=== PATIENT | female | born 1990 | race African-American/Black ===

== ENCOUNTER 2018-06-10 21:13 | Emergency (ER) | payer OTHER ==
[~2018-06-10] VITALS: Ht 152.4 cm; Wt 124.7 kg
--- OUTSIDE RECORDS SUMMARY | 2018-06-10 21:15 | XMS REPORT | Continuity of Care Document ---
Author Author [facility] Interface Address Unknown Phone Unavailable Problems Problem Status Onset Date Classification Date Reported Comments Source Discharge Diagnosis: Atypical chest pain 10/22/2016 10/25/2016 [facility] CP Active 10/21/2016 [facility] Discharge Diagnosis: Acute suppurative otitis media without spontaneous rupture of ear drum, recurrent, right ear 05/27/2015 05/30/2015 [facility] EAR PAIN Active 05/27/2015 [facility] CONGESTION / SORE THROAT Active 05/19/2014 [facility] CHEST PAIN Active 02/13/2014 [facility] Ear infection Active Problem 08/30/2017 [facility] Morbid obesity Active Problem 08/30/2017 [facility] Medications Medication Details Route Status Patient Instructions Ordering Provider Order Date Source cefdinir 300 MG Oral Capsule 300 mg=1 cap, PO, BID, X 10 day, # 20 cap, 0 Refill(s), Pharmacy: [id number] No Longer Active 05/24/2017 [facility] 200 ACTUAT Albuterol 0.09 MG/ACTUAT Metered Dose Inhaler [ProAir HFA] 2 puff, INHALER, Q6H, PRN wheezing, coughing, or shortness of breath, # 1 ea, 1 Refill(s) Active 05/20/2017 [facility] tramadol hydrochloride 50 MG Oral Tablet 50 mg=1 tab, PO, Q12H, PRN Pain, X 7 day, # 14 tab, 0 Refill(s) Active 10/22/2016 [facility] Ketorolac 30 mg, Route: IVP, Drug form: INJ, ONCE, Dosing Weight 116.818, kg, Priority: STAT, Start date: 10/22/16 4:16:00 CDT, Stop date: 10/22/16 4:16:00 CDT Inactive 10/22/2016 [facility] Sodium Chloride 0.154 MEQ/ML Injectable Solution 1,000 mL, 1000 ml/hr, Infuse Over: 1 hr, Route: IV, 1,000, Drug form: INJ, ONCE, Priority: STAT, Dosing Weight 116.818 kg, Start date: 10/22/16 1:30:00 CDT, Duration: 1 doses or times, Stop date: 10/22/16 1:30:00 CDT Inactive 10/22/2016 [facility] Clindamycin 600 mg, Route: IVPB, ONCE, Dosing Weight 116.818, kg, Priority: STAT, Start date: 10/22/16 1:30:00 CDT, Duration: 1 doses or times, Stop date: 10/22/16 1:30:00 CDT, ABX Indication: Other (specify in Comments) Inactive 10/22/2016 [facility] Acetaminophen 325 MG / Hydrocodone Bitartrate 5 MG Oral Tablet 1 tab, Route: PO, Drug Form: TAB, Dosing Weight 116.818, kg, ONCE, STAT, Start date: 10/22/16 1:30:00 CDT, Stop date: 10/22/16 1:30:00 CDT Inactive 10/22/2016 [facility] Saline Flush 0.9% 10 mL, Route: IVP, Drug Form: INJ, Dosing Weight 116.818, kg, PRN, PRN Line Flush, Start date: 10/21/16 20:36:00 CDT, Duration: 30 day, Stop date: 11/20/16 20:35:00 CDTNotes: (Same as: BD Posiflush) No Longer Active 10/22/2016 [facility] Tetracaine 20 MG/ML Topical Solution 3 drp, Route: RIGHT EAR, ONCE, Start date: 05/27/15 7:30:00, Stop date: 05/27/15 7:30:00 Inactive 05/27/2015 [facility] Amoxicillin 500 MG / Clavulanate 125 MG Oral Tablet [Augmentin 500-mg] 1 tab, PO, Q8H, X 14 day, # 42 tab, 0 Refill(s) Active 05/27/2015 [facility] Allergies, Adverse Reactions, Alerts Substance Category Reaction Severity Reaction type Status Date Reported Comments Source sulfa drugs Assertion Drug allergy Active [facility] Immunizations Immunization Date Given Site Status Last Updated Comments Source Results Order Name Results Value Reference Range Date Interpretation Comments Source URINE AND STOOL UA Mucus Few /LPF None Seen /LPF 10/22/2016 [facility] URINE AND STOOL UA Ketones Negative mg/dL Negative mg/dL 10/22/2016 [facility] URINE AND STOOL UA Glucose Negative mg/dL Negative mg/dL 10/22/2016 [facility] URINE AND STOOL UA Spec Grav 1.027 <=1.030 10/22/2016 [facility] URINE AND STOOL UA Protein Negative mg/dL Negative mg/dL 10/22/2016 [facility] URINE AND STOOL UA pH 5.0 5.0 - 8.0 10/22/2016 [facility] URINE AND STOOL UA Turbidity Slight *ABN* (10/22/16 1:00 AM) Clear 10/22/2016 [facility] URINE AND STOOL UA Color Yellow *NA* (10/22/16 1:00 AM) Yellow 10/22/2016 [facility] URINE AND STOOL UA RBC 2 /HPF 0 - 2 10/22/2016 [facility] URINE AND STOOL UA WBC 2 /HPF 0 - 5 10/22/2016 [facility] URINE AND STOOL UA Bacteria Occasional /HPF None Seen /HPF 10/22/2016 [facility] URINE AND STOOL UA Sq Epi Moderate /LPF Few /LPF 10/22/2016 [facility] URINE AND STOOL UA Leuk Est Negative (10/22/16 1:00 AM) Negative 10/22/2016 [facility] URINE AND STOOL UA Urobilinogen 2.0 mg/dL 0.1 - 1.0 10/22/2016 [facility] URINE AND STOOL UA Nitrite Negative (10/22/16 1:00 AM) Negative 10/22/2016 [facility] URINE AND STOOL UA Blood Negative (10/22/16 1:00 AM) Negative 10/22/2016 [facility] URINE AND STOOL UA Bili Negative *NA* (10/22/16 1:00 AM) Negative 10/22/2016 [facility] URINE CHEM U Preg Negative (10/22/16 1:00 AM) Negative 10/22/2016 [facility] CARDIAC ENZYMES CK MB Index 0.9 0.0 - 2.5 10/22/2016 [facility] CARDIAC ENZYMES Total CK 74 unit/L 12 - 191 10/22/2016 [facility] CARDIAC ENZYMES CK MB 0.7 ng/mL 0.5 - 3.6 10/22/2016 [facility] CARDIAC ENZYMES Troponin-I null 0.00 - 0.40 10/22/2016 [facility] CHEM PANEL eGFR 108 mL/min/1.73m2 10/22/2016 Result Comment: The eGFR is calculated using the CKD-EPI formula. In most young, healthy individuals the eGFR will be >90 mL/min/1.73m2. The eGFR declines with age. An eGFR of 60-89 may be normal in some populations, particularly the elderly, for whom the CKD-EPI formula has not been extensively validated. Use of the eGFR is not recommended in the following populations: Individuals with unstable creatinine concentrations, including patients and those with serious co-morbid conditions. Patients with extremes in muscle mass or diet. The data above are obtained from the National Kidney Disease Education Program (NKDEP) which additionally recommends that when the eGFR is used in patients with extremes of body mass index for purposes of drug dosing, the eGFR should be multiplied by the estimated BMI. [facility] CHEM PANEL Globulin 4.0 g/dL 2.7 - 4.2 10/22/2016 [facility] CHEM PANEL B/C Ratio 18 6 - 25 10/22/2016 [facility] CHEM PANEL AGAP 9.4 meq/L 10.0 - 20.0 10/22/2016 [facility] CHEM PANEL A/G Ratio 0.8 0.7 - 1.6 10/22/2016 [facility] CHEM PANEL Alk Phos 59 unit/L 39 - 136 10/22/2016 [facility] CHEM PANEL AST 16 unit/L 0 - 37 10/22/2016 [facility] CHEM PANEL ALT 19 unit/L 0 - 65 10/22/2016 [facility] CHEM PANEL Albumin Lvl 3.2 g/dL 3.5 - 5.0 10/22/2016 [facility] CHEM PANEL Bili Total 0.2 mg/dL 0.2 - 1.3 10/22/2016 [facility] CHEM PANEL Calcium Lvl 8.6 mg/dL 8.5 - 10.5 10/22/2016 [facility] CHEM PANEL CO2 26 meq/L 24 - 32 10/22/2016 [facility] CHEM PANEL Chloride Lvl 106 meq/L 95 - 109 10/22/2016 [facility] CHEM PANEL Potassium Lvl 3.4 meq/L 3.5 - 5.1 10/22/2016 [facility] CHEM PANEL Total Protein 7.2 g/dL 6.4 - 8.4 10/22/2016 [facility] CHEM PANEL Sodium Lvl 138 meq/L 135 - 145 10/22/2016 [facility] CHEM PANEL Creatinine Lvl 0.87 mg/dL 0.50 - 1.40 10/22/2016 [facility] CHEM PANEL BUN 16 mg/dL 7 - 22 10/22/2016 [facility] CHEM PANEL Glucose Lvl 107 mg/dL 70 - 99 10/22/2016 [facility] CHEM PANEL Phosphorus 3.4 mg/dL 2.5 - 4.5 10/22/2016 [facility] CHEM PANEL Magnesium Lvl 2.2 mg/dL 1.8 - 2.4 10/22/2016 [facility] HEMATOLOGY Segs 48.3 % 45.0 - 75.0 10/22/2016 [facility] HEMATOLOGY Lymphocytes 43.6 % 20.0 - 40.0 10/22/2016 [facility] HEMATOLOGY Eosinophils 3.0 % 0.0 - 4.0 10/22/2016 [facility] HEMATOLOGY Monocytes 4.5 % 2.0 - 12.0 10/22/2016 [facility] HEMATOLOGY Segs-Bands # 3.7 K/CMM 1.5 - 8.1 10/22/2016 [facility] [place] Eosinophils # 0.2 K/CMM 0.0 - 0.5 10/22/2016 [facility] [place] Lymphocytes # 3.3 K/CMM 1.0 - 5.5 10/22/2016 [facility] [place] Basophils 0.6 % 0.0 - 1.0 10/22/2016 [facility] [place] Monocytes # 0.3 K/CMM 0.0 - 0.8 10/22/2016 [facility] [place] D-Dimer 0.45 ug/mL FEU 10/22/2016 [facility] [place] RBC 4.32 M/CMM 4.20 - 5.40 10/22/2016 [facility] [place] Hgb 12.4 g/dL 12.0 - 16.0 10/22/2016 [facility] [place] WBC 7.6 K/CMM 3.7 - 10.4 10/22/2016 [facility] [place] MCV 86.7 fL 80.0 - 98.0 10/22/2016 [facility] [place] MCHC 33.0 g/dL 32.0 - 36.0 10/22/2016 [facility] [place] MCH 28.6 pg 27.0 - 31.0 10/22/2016 [facility] [place] Hct 37.5 % 36.0 - 48.0 10/22/2016 [facility] [place] Platelet 251 K/CMM 133 - 450 10/22/2016 [facility] [place] RDW 13.8 % 11.5 - 14.5 10/22/2016 [facility] [place] MPV 7.4 fL 7.4 - 10.4 10/22/2016 [facility] Ext Lower Venous Doppler Bilat US Ext Lower Venous Doppler Bilat US Exam: Bilateral lower extremity venous ultrasound Clinical indication: swelling Technique: Bilateral lower extremity venous ultrasound is performed. Findings: Exam shows intact common femoral, superficial femoral and popliteal veins. Normal augmentation and compression is evident in these venous segments. No intraluminal thrombus seen. Impression: No evidence for DVT. 10/22/2016 - - Read by: Benny Gutierres MD Dictated Date/time: 10/22/16 03:44 Electronically Signed by: Benny Gutierres MD 10/22/16 03:45 FINAL REPORT [facility] Chest Pulmonary Embolism CTA Chest Pulmonary Embolism CTA CT ANGIOGRAM OF THE CHEST WITH RECONSTRUCTION DATED 10/22/2016. CLINICAL INDICATION: Shortness of breath. Elevated d-dimer. COMPARISON: None. TECHNIQUE: A dynamic contrast-enhanced helical CT angiogram of the chest was performed using pulmonary embolism protocol with subsequent sagittal and coronal MIP reconstruction. A total of 100 cc of Omnipaque 300 was injected intravenously for the exam. CT radiation dose: GCF=834 mGy-cm FINDINGS: PULMONARY ARTERIES: The pulmonary arteries appear to enhance normally. No low- density pulmonary artery filling defects are identified to suggest the CT diagnosis of acute pulmonary embolism. MEDIASTINUM: There is no CT evidence of a mediastinal mass or pathologically enlarged mediastinal lymph nodes. The thoracic aorta is normal in caliber and demonstrates no evidence of dissection. The heart is enlarged. No pericardial fluid collections are noted. PLEURAL SPACES: No acute pleural space abnormalities are detected. LUNGS: The lungs appear clear of acute disease.. UPPER ABDOMEN: The included upper abdominal organs appear unremarkable. ADDITIONAL COMMENTS: None. IMPRESSION: 1. No CT evidence of acute pulmonary embolism. No acute CT abnormalities of the lungs, mediastinum or pleural spaces are detected. SL:131 10/22/2016 - - Read by: Jony Singh MD Dictated Date/time: 10/22/16 03:55 Electronically Signed by: Jony Singh MD 10/22/16 03:58 FINAL REPORT [facility] Chest 2 views DX Chest 2 views DX Chest 2 views DX 10/21/2016 8:36 PM CDT Ordering Physician: Vania Walters CLINICAL HISTORY: - shortness of breath; chest pain and dizziness TECHNIQUE: PA and lateral upright views of the chest were obtained. COMPARISON: None FINDINGS: Lungs are clear. No pleural effusion or pneumothorax is present. Cardiomediastinal silhouette is normal. Bones are normal. IMPRESSION: No acute abnormality of the chest. SL: MUSHTAQ-PC 10/21/2016 - - Read by: Javier Richey MD Dictated Date/time: 10/21/16 21:20 Electronically Signed by: Javier Richey MD 10/21/16 21:20 FINAL REPORT [facility] RAPID Grp A Strep Scr Negative (05/19/14 2:48 PM) Negative 05/19/2014 [facility] VIRAL - SEROLOGY Influ B Negative 1 (05/19/14 2:48 PM) Negative 05/19/2014 1Interpretive Data: Influenza A&B Antigen: Due to the low sensitivity of this test a negative result does not exclude influenza virus infection. A diagnosis of influenza should be considered based on a patient's clinical presentation and empiric antiviral treatment should be considered, if indicated. If more conclusive testing is desired, follow-up confirmatory testing with either viral culture or PCR is warranted. [facility] VIRAL - SEROLOGY Influ A Negative (05/19/14 2:48 PM) Negative 05/19/2014 [facility] URINE AND STOOL UA Urobilinogen <=1.0 mg/dL 0.1 - 1.0 02/14/2014 [facility] URINE AND STOOL UA Nitrite Negative (02/13/14 10:27 PM) Negative 02/14/2014 [facility] URINE AND STOOL UA Leuk Est Trace *ABN* (02/13/14 10:27 PM) Negative 02/14/2014 [facility] URINE AND STOOL UA Blood Large *ABN* (02/13/14 10:27 PM) Negative 02/14/2014 [facility] URINE AND STOOL UA Bili Negative *NA* (02/13/14 10:27 PM) Negative 02/14/2014 [facility] URINE AND STOOL UA Sq Epi Many /LPF Few /LPF 02/14/2014 [facility] URINE AND STOOL UA WBC 12 /HPF 0 - 5 02/14/2014 [facility] URINE AND STOOL UA Bacteria Occasional /HPF None Seen /HPF 02/14/2014 [facility] URINE AND STOOL UA Amorph Tashia Occasional /HPF None Seen /HPF 02/14/2014 [facility] URINE AND STOOL UA RBC 5 /HPF 0 - 2 02/14/2014 [facility] URINE AND STOOL UA Spec Grav 1.019 <=1.030 02/14/2014 [facility] URINE AND STOOL UA pH 6.0 5.0 - 8.0 02/14/2014 [facility] URINE AND STOOL UA Ketones Negative mg/dL Negative mg/dL 02/14/2014 [facility] URINE AND STOOL UA Protein Negative mg/dL Negative mg/dL 02/14/2014 [facility] URINE AND STOOL UA Glucose Negative mg/dL Negative mg/dL 02/14/2014 [facility] URINE AND STOOL UA Turbidity Marked *ABN* (02/13/14 10:27 PM) Clear 02/14/2014 [facility] URINE AND STOOL UA Color Yellow *NA* (02/13/14 10:27 PM) Yellow 02/14/2014 [facility] URINE CHEM U Preg Negative (02/13/14 10:27 PM) Negative 02/14/2014 [facility] Vital Signs Vital Sign Value Date Comments Source Height 152.4 cm 05/24/2017 [facility] BMI Calculated 51.58 05/24/2017 [facility] Heart Rate 83 05/24/2017 [facility] Temperature Oral (F) 98.3 F 05/24/2017 [facility] Respitory Rate 16 05/24/2017 [facility] Weight 119.801 05/24/2017 [facility] Systolic (mm Hg) 125 05/24/2017 [facility] Diastolic (mm Hg) 80 05/24/2017 [facility] Height 152.4 cm 05/20/2017 [facility] Weight 121.818 05/20/2017 [facility] BMI Calculated 52.45 05/20/2017 [facility] Temperature Oral (F) 97.9 F 05/20/2017 [facility] Respitory Rate 18 05/20/2017 [facility] Heart Rate 79 05/20/2017 [facility] Systolic (mm Hg) 135 05/20/2017 [facility] Diastolic (mm Hg) 84 05/20/2017 [facility] Heart Rate 87 10/22/2016 [facility] Respitory Rate 18 10/22/2016 [facility] Systolic (mm Hg) 107 10/22/2016 [facility] Diastolic (mm Hg) 78 10/22/2016 [facility] Respitory Rate 18 10/22/2016 [facility] Heart Rate 78 10/22/2016 [facility] Systolic (mm Hg) 94 10/22/2016 [facility] Diastolic (mm Hg) 78 10/22/2016 [facility] BMI Calculated 50.3 10/22/2016 [facility] Height 152.4 cm 10/22/2016 [facility] Weight 116.818 10/22/2016 [facility] Respitory Rate 18 10/22/2016 [facility] Temperature Oral (F) 98.4 F 10/22/2016 [facility] Heart Rate 82 10/22/2016 [facility] Systolic (mm Hg) 138 10/22/2016 [facility] Diastolic (mm Hg) 92 10/22/2016 [facility] BMI Calculated 46.97 05/27/2015 [facility] Weight 109.091 05/27/2015 [facility] Height 152.4 cm 05/27/2015 [facility] Temperature Oral (F) 98.0 F 05/27/2015 [facility] Heart Rate 94 05/27/2015 [facility] Respitory Rate 18 05/27/2015 [facility] Systolic (mm Hg) 142 05/27/2015 [facility] Diastolic (mm Hg) 82 05/27/2015 [facility] Temperature Oral (F) 97.9 F 05/19/2014 [facility] Systolic (mm Hg) 16 05/19/2014 [facility] Diastolic (mm Hg) 82 05/19/2014 [facility] Respitory Rate 18 05/19/2014 [facility] Heart Rate 92 05/19/2014 [facility] BMI Calculated 37.18 05/19/2014 [facility] Height 152.4 cm 05/19/2014 [facility] Weight 86.364 05/19/2014 [facility] Weight 90.909 02/14/2014 [facility] Height 152.4 cm 02/14/2014 [facility] BMI Calculated 39.14 02/14/2014 [facility] Diastolic (mm Hg) 72 02/14/2014 [facility] Systolic (mm Hg) 114 02/14/2014 [facility] Respitory Rate 22 02/14/2014 [facility] Heart Rate 104 02/14/2014 [facility] Temperature Oral (F) 98.5 F 02/14/2014 [facility] Encounters Location Location Details Encounter Type Encounter Number Reason For Visit Attending Provider ADM Date DC Date Status Source [facility] [id number] Reuben Vasquez 02/14/2014 02/14/2014 [facility] [id number] Anusha Marie 05/19/2014 05/19/2014 [facility] [id number] Leslie Shields 05/27/2015 05/27/2015 [facility] Outpatient [id number] WILLIAMS SIGRID 10/08/2016 Active [facility] Outpatient [id number] KIEL CASTELLANOS 10/21/2016 Active [facility] Emergency [id number] Nick Jimenez 10/22/2016 10/22/2016 [facility] Outpatient [id number] KIEL EMANUEL 05/19/2017 Active [facility] [id number] Williams Marie 05/19/2017 05/20/2017 [facility] Outpatient [id number] JANETTE MARTINEZ 05/24/[address] [facility] [place] [place] [facility] [place] Out[facility] [id number] 05/24/2017 05/25/2017 [facility] Procedures Procedure Code Date Perfomer Comments Source Hernia repair [id number] [facility] Hernia repair [id number] [facility]
--- OUTSIDE RECORDS SUMMARY | 2018-06-10 21:16 | XMS REPORT | Summary of Care ---
Author Author [facility] Organization [facility] Address Unknown Phone Unavailable Encounter MICHAEL Mchugh(YODIT) [id number] Date(s): 10/21/16 - 10/22/16 [facility] [address] [place] [address]- Discharge Diagnosis: Atypical chest pain Discharge Disposition: Home or Self Care Attending Physician: Nick Jimenez DO Vital Signs 1 2 3 Most recent to oldest [Reference Range]: 152.4 cm (10/21/16 8:33 PM) Height 98.4 DegF (10/21/16 8:33 PM) Temperature Oral [96.4-99.1 DegF] 107/78 mmHg (10/22/16 5:16 AM) 94/78 mmHg (10/22/16 1:01 AM) 138/92 mmHg (10/21/16 8:33 PM) Blood Pressure [90-140/60-90 mmHg] 18 BRMIN (10/22/16 5:16 AM) 18 BRMIN (10/22/16 1:01 AM) 18 BRMIN (10/21/16 8:33 PM) Respiratory Rate [14-20 BRMIN] 87 bpm (10/22/16 5:16 AM) 78 bpm (10/22/16 1:01 AM) 82 bpm (10/21/16 8:33 PM) Peripheral Pulse Rate [60-100 bpm] 116.818 kg (10/21/16 8:33 PM) Weight 50.3 m2 (10/21/16 8:33 PM) Body Mass Index Problem List Condition Effective Dates Status Health Status Informant Ear Active infection(Confirmed) Morbid Active obesity(Confirmed) Allergies, Adverse Reactions, Alerts Substance Reaction Severity Status sulfa drugs Active Medications acetaminophen-hydrocodone 325 mg-5 mg oral tablet 1 tab, Route: PO, Drug Form: TAB, Dosing Weight 116.818, kg, ONCE, STAT, Start d ate: 10/22/16 1:30:00 CDT, Stop date: 10/22/16 1:30:00 CDT Start Date: 10/22/16 Stop Date: 10/22/16 Status: Discontinued clindamycin 600 mg, Route: IVPB, ONCE, Dosing Weight 116.818, kg, Priority: STAT, Start date : 10/22/16 1:30:00 CDT, Duration: 1 doses or times, Stop date: 10/22/16 1:30:00 CDT, ABX Indication: Other (specify in Comments) Start Date: 10/22/16 Stop Date: 10/22/16 Status: Discontinued ketOROLAC 30 mg, Route: IVP, Drug form: INJ, ONCE, Dosing Weight 116.818, kg, Priority: ST AT, Start date: 10/22/16 4:16:00 CDT, Stop date: 10/22/16 4:16:00 CDT Start Date: 10/22/16 Stop Date: 10/22/16 Status: Completed Saline Flush 0.9% 10 mL, Route: IVP, Drug Form: INJ, Dosing Weight 116.818, kg, PRN, PRN Line Flus h, Start date: 10/21/16 20:36:00 CDT, Duration: 30 day, Stop date: 11/20/16 20:3 5:00 CDT Notes: (Same as: BD Posiflush) Start Date: 10/21/16 Stop Date: 10/22/16 Status: Discontinued Sodium Chloride 0.9% (Bolus) IV 1,000 mL, 1000 ml/hr, Infuse Over: 1 hr, Route: IV, 1,000, Drug form: INJ, ONCE, Priority: STAT, Dosing Weight 116.818 kg, Start date: 10/22/16 1:30:00 CDT, Dur ation: 1 doses or times, Stop date: 10/22/16 1:30:00 CDT Start Date: 10/22/16 Stop Date: 10/22/16 Status: Completed tramadol 50 mg oral tablet 50 mg=1 tab, PO, Q12H, PRN Pain, X 7 day, # 14 tab, 0 Refill(s) Start Date: 10/22/16 Stop Date: 10/29/16 Status: Ordered Results ELECTROLYTES Most recent to 1 oldest [Reference Range]: Sodium Lvl [135-145 138 mEq/L mEq/L] (10/21/16 11:36 PM) Potassium Lvl 3.4 mEq/L [3.5-5.1 mEq/L] *LOW* (10/21/16 11:36 PM) Chloride Lvl [95-109 106 mEq/L mEq/L] (10/21/16 11:36 PM) CO2 [24-32 mEq/L] 26 mEq/L (10/21/16 11:36 PM) AGAP [10.0-20.0 9.4 mEq/L mEq/L] *LOW* (10/21/16 11:36 PM) CHEM PANEL Most recent to 1 oldest [Reference Range]: Creatinine Lvl 0.87 mg/dL [0.50-1.40 mg/dL] (10/21/16 11:36 PM) eGFR 108 mL/min/1.73m2 1 *NA* (10/21/16 11:36 PM) BUN [7-22 mg/dL] 16 mg/dL (10/21/16 11:36 PM) B/C Ratio [6-25] 18 (10/21/16 11:36 PM) Glucose Lvl [70-99 107 mg/dL mg/dL] *HI* (10/21/16 11:36 PM) Total Protein 7.2 g/dL [6.4-8.4 g/dL] (10/21/16 11:36 PM) Albumin Lvl [3.5-5.0 3.2 g/dL g/dL] *LOW* (10/21/16 11:36 PM) Globulin [2.7-4.2 4.0 g/dL g/dL] (10/21/16 11:36 PM) A/G Ratio [0.7-1.6] 0.8 (10/21/16 11:36 PM) Calcium Lvl 8.6 mg/dL [8.5-10.5 mg/dL] (10/21/16 11:36 PM) Phosphorus [2.5-4.5 3.4 mg/dL mg/dL] (10/21/16 11:36 PM) Magnesium Lvl 2.2 mg/dL [1.8-2.4 mg/dL] (10/21/16 11:36 PM) ALT [0-65 unit/L] 19 unit/L (10/21/16 11:36 PM) AST [0-37 unit/L] 16 unit/L (10/21/16 11:36 PM) Alk Phos [39-136 59 unit/L unit/L] (10/21/16 11:36 PM) Bili Total [0.2-1.3 0.2 mg/dL mg/dL] (10/21/16 11:36 PM) 1Result Comment: The eGFR is calculated using the [...] from the National Kidney Disease Education Program ( NKDEP) which additionally recommends that when the eGFR is used in patients with extremes of body mass index for purposes of drug dosing, the eGFR should be mul tiplied by the estimated BMI. CARDIAC ENZYMES Most recent to 1 oldest [Reference Range]: Total CK [12-191 74 unit/L unit/L] (10/21/16 11:36 PM) CK MB [0.5-3.6 0.7 ng/mL ng/mL] (10/21/16 11:36 PM) CK MB Index 0.9 [0.0-2.5] (10/21/16 11:36 PM) Troponin-I <0.02 ng/mL [0.00-0.40 ng/mL] (10/21/16 11:36 PM) URINE CHEM Most recent to 1 oldest [Reference Range]: U Preg [Negative] Negative (10/22/16 1:00 AM) URINE AND STOOL Most recent to 1 oldest [Reference Range]: UA Turbidity [Clear] Slight *ABN* (10/22/16 1:00 AM) UA Color [Yellow] Yellow *NA* (10/22/16 1:00 AM) UA pH [5.0-8.0] 5.0 (10/22/16 1:00 AM) UA Spec Grav 1.027 [<=1.030] (10/22/16 1:00 AM) UA Glucose [Negative Negative mg/dL mg/dL] *NA* (10/22/16 1:00 AM) UA Blood [Negative] Negative (10/22/16 1:00 AM) UA Ketones [Negative Negative mg/dL mg/dL] *NA* (10/22/16 1:00 AM) UA Protein [Negative Negative mg/dL mg/dL] (10/22/16 1:00 AM) UA Urobilinogen 2.0 mg/dL [0.1-1.0 mg/dL] *HI* (10/22/16 1:00 AM) UA Bili [Negative] Negative *NA* (10/22/16 1:00 AM) UA Leuk Est Negative [Negative] (10/22/16 1:00 AM) UA Nitrite Negative [Negative] (10/22/16 1:00 AM) UA WBC [0-5 /HPF] 2 /HPF (10/22/16 1:00 AM) UA RBC [0-2 /HPF] 2 /HPF (10/22/16 1:00 AM) UA Bacteria [None Occasional /HPF Seen /HPF] *NA* (10/22/16 1:00 AM) UA Sq Epi [Few /LPF] Moderate /LPF *ABN* (10/22/16 1:00 AM) UA Mucus [None Seen Few /LPF /LPF] *NA* (10/22/16 1:00 AM) HEMATOLOGY Most recent to 1 oldest [Reference Range]: WBC [3.7-10.4 K/CMM] 7.6 K/CMM (10/21/16 11:36 PM) RBC [4.20-5.40 4.32 M/CMM M/CMM] (10/21/16 11:36 PM) Hgb [12.0-16.0 g/dL] 12.4 g/dL (10/21/16 11:36 PM) Hct [36.0-48.0 %] 37.5 % (10/21/16 11:36 PM) MCV [80.0-98.0 fL] 86.7 fL (10/21/16 11:36 PM) MCH [27.0-31.0 pg] 28.6 pg (10/21/16 11:36 PM) MCHC [32.0-36.0 33.0 g/dL g/dL] (10/21/16 11:36 PM) RDW [11.5-14.5 %] 13.8 % (10/21/16 11:36 PM) Platelet [133-450 251 K/CMM K/CMM] (10/21/16 11:36 PM) MPV [7.4-10.4 fL] 7.4 fL (10/21/16 11:36 PM) Segs [45.0-75.0 %] 48.3 % (10/21/16 11:36 PM) Lymphocytes 43.6 % [20.0-40.0 %] *HI* (10/21/16 11:36 PM) Monocytes [2.0-12.0 4.5 % %] (10/21/16 11:36 PM) Eosinophils [0.0-4.0 3.0 % %] (10/21/16 11:36 PM) Basophils [0.0-1.0 0.6 % %] (10/21/16 11:36 PM) Segs-Bands # 3.7 K/CMM [1.5-8.1 K/CMM] (10/21/16 11:36 PM) Lymphocytes # 3.3 K/CMM [1.0-5.5 K/CMM] (10/21/16 11:36 PM) Monocytes # [0.0-0.8 0.3 K/CMM K/CMM] (10/21/16 11:36 PM) Eosinophils # 0.2 K/CMM [0.0-0.5 K/CMM] (10/21/16 11:36 PM) D-Dimer 0.45 ug/mL FEU *NA* (10/21/16 11:36 PM) Immunizations No data available for this section Procedures Procedure Date Related Diagnosis Body Site Hernia repair Social History Social History Type Response Substance Abuse Use: None. Alcohol Current, Type Wine, Liquor. Frequency: 1-2 times per month. Smoking Status Never smoker; Exposure to Tobacco Smoke None; Cigarette Smoking Last 365 Days No; Reg Smoking Cessation Counseling No Assessment and Plan No data available for this section
--- OUTSIDE RECORDS SUMMARY | 2018-06-10 21:16 | XMS REPORT | Summary of Care ---
Author Author [facility] Organization [facility] Address Unknown Phone Unavailable Encounter MICHAEL Mchugh(FIN) [id number] Date(s): 05/19/17 - 05/19/17 [facility] [address] [facility] [address] [place] [phone] Discharge Disposition: Home or Self Care Attending Physician: Amor Marie MD Vital Signs Most recent to 1 oldest [Reference Range]: Height 152.4 cm (05/19/17 7:02 PM) Temperature Oral 97.9 DegF [96.4-99.1 DegF] (05/19/17 7:02 PM) Blood Pressure 135/84 mmHg [90-140/60-90 mmHg] (05/19/17 7:02 PM) Respiratory Rate 18 BRMIN [14-20 BRMIN] (05/19/17 7:02 PM) Peripheral Pulse 79 bpm Rate [60-100 bpm] (05/19/17 7:02 PM) Weight 121.818 kg (05/19/17 7:02 PM) Body Mass Index 52.45 m2 (05/19/17 7:02 PM) Problem List Condition Effective Dates Status Health Status Informant Ear Active infection(Confirmed) Morbid Active obesity(Confirmed) Allergies, Adverse Reactions, Alerts Substance Reaction Severity Status sulfa drugs Active Medications ProAir HFA 90 mcg/inh inhalation aerosol with adapter 2 puff, INHALER, Q6H, PRN wheezing, coughing, or shortness of breath, # 1 ea, 1 Refill(s) Start Date: 05/19/17 Status: Ordered Results No data available for this section Immunizations No data available for this section Procedures Procedure Date Related Diagnosis Body Site Status Hernia repair Completed Social History Social History Type Response Substance Abuse Use: None. Alcohol Current, Type Wine, Liquor. Frequency: 1-2 times per month. Smoking Status Never smoker; Ready to change: No; Concerns about tobacco use in household: No; Exposure to Tobacco Smoke None; Cigarette Smoking Last 365 Days No; Reg Smoking Cessation Counseling No entered on: 05/24/17 Assessment and Plan No data available for this section
--- OUTSIDE RECORDS SUMMARY | 2018-06-10 21:16 | XMS REPORT | Summary of Care ---
Author Author [facility] [place] Address Unknown Phone Unavailable Encounter MICHAEL Mchugh(FIN) [id number] Date(s): 05/24/17 - 05/24/17 [facility] [address] [place] [phone] Discharge Disposition: Home or Self Care Vital Signs Most recent to 1 oldest [Reference Range]: Height 152.4 cm (05/24/17 9:28 AM) Temperature Oral 98.3 DegF [96.4-99.1 DegF] (05/24/17 9:28 AM) Blood Pressure 125/80 mmHg [90-140/60-90 mmHg] (05/24/17 9:28 AM) Respiratory Rate 16 BRMIN [14-20 BRMIN] (05/24/17 9:28 AM) Peripheral Pulse 83 bpm Rate [60-100 bpm] (05/24/17 9:28 AM) Weight 119.801 kg (05/24/17 9:28 AM) Body Mass Index 51.58 m2 (05/24/17 9:28 AM) Problem List Condition Effective Dates Status Health Status Informant Ear Active infection(Confirmed) Morbid Active obesity(Confirmed) Allergies, Adverse Reactions, Alerts Substance Reaction Severity Status sulfa drugs Active Medications cefdinir 300 mg oral capsule 300 mg=1 cap, PO, BID, X 10 day, # 20 cap, 0 Refill(s), Pharmacy: [facility]/pharmacy # [id number] Start Date: 05/24/17 Stop Date: 06/03/17 Status: Completed Results No data available for this section [...]
--- OUTSIDE RECORDS SUMMARY | 2018-06-10 21:16 | XMS REPORT | Summary of Care ---
Author Author [facility] Organization [facility] Address Unknown Phone Unavailable Encounter MICHAEL Mchugh(YODIT) [id number] Date(s): 05/27/15 - 05/27/15 [facility] [address] [place] [address]- [phone] Discharge Diagnosis: Acute suppurative otitis media without spontaneous rupture of ear drum, recurrent, right ear Discharge Disposition: Home Attending Physician: Leslie Shields DO Vital Signs Most recent to 1 oldest [Reference Range]: Height 152.4 cm (05/27/15 6:34 AM) Temperature Oral 98.0 DegF [96.4-99.1 DegF] (05/27/15 6:34 AM) Blood Pressure 142/82 mmHg [90-140/60-90 mmHg] *HI* (05/27/15 6:34 AM) Respiratory Rate 18 BRMIN [14-20 BRMIN] (05/27/15 6:34 AM) Peripheral Pulse 94 bpm Rate [60-100 bpm] (05/27/15 6:34 AM) Weight 109.091 kg (05/27/15 6:34 AM) Body Mass Index 46.97 m2 (05/27/15 6:34 AM) Problem List Condition Effective Dates Status Health Status Informant Ear Active infection(Confirmed) Allergies, Adverse Reactions, Alerts Substance Reaction Severity Status sulfa drugs Active Medications Augmentin 500 mg oral tablet 1 tab, PO, Q8H, X 14 day, # 42 tab, 0 Refill(s) Start Date: 05/27/15 Stop Date: 06/10/15 Status: Ordered tetracaine topical 2% solution 3 drp, Route: RIGHT EAR, ONCE, Start date: 05/27/15 7:30:00, Stop date: 05/27/15 7:30:00 Start Date: 05/27/15 Stop Date: 05/27/15 Status: Completed Results No data available for this section Immunizations No data available for this section Procedures Procedure Date Related Diagnosis Body Site Hernia repair Social History Social History Type Response Substance Abuse Use: None. Alcohol Never Smoking Status Never smoker; Exposure to Tobacco Smoke None; Cigarette Smoking Last 365 Days No; Reg Smoking Cessation Counseling No Assessment and Plan No data available for this section
--- OUTSIDE RECORDS SUMMARY | 2018-06-10 21:16 | XMS REPORT | Summary of Care ---
Author Organization Unknown Address Unknown Phone Unavailable Encounter HQ Shreya_donis(YODIT) [id number] Date(s): 02/13/14 - 02/13/14 [facility] [address] [address] Discharge Disposition: Home Physician Attending: Reuben Vasquez MD Reason for Visit CHEST PAIN Vital Signs Most recent to 1 oldest [Reference Range]: Height 152.4 cm (02/13/14 10:23 PM) Temperature Oral 98.5 DegF [96.4-99.1 DegF] (02/13/14 10:23 PM) Systolic Blood 114 mmHg Pressure [90-140 (02/13/14 10:23 PM) mmHg] Diastolic Blood 72 mmHg Pressure [60-90 (02/13/14 10:23 PM) mmHg] Respiratory Rate 22 BRMIN [14-20 BRMIN] *HI* (02/13/14 10:23 PM) Peripheral Pulse 104 bpm Rate [60-100 bpm] *HI* (02/13/14 10:23 PM) Weight 90.909 kg (02/13/14 10:23 PM) Body Mass Index 39.14 m2 (02/13/14 10:23 PM) Problem List No data available for this section Allergies, Adverse Reactions, Alerts Substance Reaction Severity Status sulfa drugs Active Medications No data available for this section Results URINE CHEM Most recent to 1 oldest [Reference Range]: U Preg [Negative] Negative (02/13/14 10:27 PM) URINE AND STOOL Most recent to 1 oldest [Reference Range]: UA Turbidity [Clear] Marked *ABN* (02/13/14 10:27 PM) UA Color [Yellow] Yellow *NA* (02/13/14 10:27 PM) UA pH [5.0-8.0] 6.0 (02/13/14 10:27 PM) UA Spec Grav 1.019 [<=1.030] (02/13/14 10:27 PM) UA Glucose [Negative Negative mg/dL mg/dL] *NA* (02/13/14 10:27 PM) UA Blood [Negative] Large *ABN* (02/13/14 10:27 PM) UA Ketones [Negative Negative mg/dL mg/dL] *NA* (02/13/14 10:27 PM) UA Protein [Negative Negative mg/dL mg/dL] (02/13/14 10:27 PM) UA Urobilinogen <=1.0 mg/dL [0.1-1.0 mg/dL] *NA* (02/13/14 10:27 PM) UA Bili [Negative] Negative *NA* (02/13/14 10:27 PM) UA Leuk Est Trace [Negative] *ABN* (02/13/14 10:27 PM) UA Nitrite Negative [Negative] (02/13/14 10:27 PM) UA WBC [0-5 /HPF] 12 /HPF *HI* (02/13/14 10:27 PM) UA RBC [0-2 /HPF] 5 /HPF *HI* (02/13/14 10:27 PM) UA Bacteria [None Occasional /HPF Seen /HPF] *NA* (02/13/14 10:27 PM) UA Sq Epi [Few /LPF] Many /LPF *ABN* (02/13/14 10:27 PM) UA Amorph Tashia [None Occasional /HPF Seen /HPF] *NA* (02/13/14 10:27 PM) Medications Administered During Your Visit No data available for this section Immunizations No data available for this section
--- OUTSIDE RECORDS SUMMARY | 2018-06-10 21:16 | XMS REPORT | Summary of Care ---
Author Organization Unknown Address Unknown Phone Unavailable Encounter HQ Lolita(YODIT) [id number] Date(s): 05/19/14 - 05/19/14 [facility] [address] [address] Discharge Disposition: Non-Emergent Physician Attending: Anusha Marie MD Reason for Visit CONGESTION / SORE THROAT Vital Signs Most recent to 1 oldest [Reference Range]: Height 152.4 cm (05/19/14 1:06 PM) Temperature Oral 97.9 DegF [96.4-99.1 DegF] (05/19/14 1:06 PM) Systolic Blood 16 mmHg Pressure [90-140 *LOW* mmHg] (05/19/14 1:06 PM) Diastolic Blood 82 mmHg Pressure [60-90 (05/19/14 1:06 PM) mmHg] Respiratory Rate 18 BRMIN [14-20 BRMIN] (05/19/14 1:06 PM) Peripheral Pulse 92 bpm Rate [60-100 bpm] (05/19/14 1:06 PM) Weight 86.364 kg (05/19/14 1:06 PM) Body Mass Index 37.18 m2 (05/19/14 1:06 PM) Problem List No data available for this section Allergies, Adverse Reactions, Alerts Substance Reaction Severity Status sulfa drugs Active Medications No data available for this section Results RAPID Most recent to 1 oldest [Reference Range]: Grp A Strep Scr Negative [Negative] (05/19/14 2:48 PM) VIRAL - SEROLOGY Most recent to 1 oldest [Reference Range]: Influ A [Negative] Negative (05/19/14 2:48 PM) Influ B [Negative] Negative 1 (05/19/14 2:48 PM) 1Interpretive Data: Influenza A&B Antigen: Due to the low sensitivity of this test a negative result does not exclude influ sherif virus infection. A diagnosis of influenza should be considered based on a p atient's clinical presentation and empiric antiviral treatment should be conside red, if indicated. If more conclusive testing is desired, follow-up confirmatory testing with either viral culture or PCR is warranted. Medications Administered During Your Visit No data available for this section Immunizations No data available for this section Procedures Procedure Type Body Site Date of Procedure Related Diagnosis Hernia repair Social History Social History Type Response Substance Abuse Use: None Alcohol Use: Never Smoking Status Never smoker, Exposure to Tobacco Smoke None, Cigarette Smoking Last 365 Days No, Reg Smoking Cessation Counseling No
--- NOTE | 2018-06-10 22:36 | Diagnostic Imaging Report ---
EXAMINATION: CXR 2 VIEW - HOPD INDICATION: Shortness of breath ^[id number] ^[id number] COMPARISON: None FINDINGS: PA and lateral views TUBES and LINES: None. LUNGS: Lungs are well inflated. Lungs are clear. There is no evidence of pneumonia or pulmonary edema. PLEURA: No pleural effusion or pneumothorax. HEART AND MEDIASTINUM: Mild enlargement of the cardiac silhouette. BONES AND SOFT TISSUES: No acute osseous lesion. Soft tissues are unremarkable. UPPER ABDOMEN: No free air under the diaphragm. IMPRESSION: No acute thoracic abnormality. Signed by: DR. Gregory Bowen MD on 06/10/2018 10:33 PM
--- NOTE | 2018-06-10 22:37 | Diagnostic Imaging Report ---
KNEE 3VW RT - HOPD HISTORY: Right leg swelling. COMPARISON: None available. FINDINGS: Bones: No acute displaced fracture. Osseous alignment is within normal limits. Joints: The joint spaces are well-maintained. Soft tissues: The soft tissues appear unremarkable. IMPRESSION: No acute radiographic abnormality. Signed by: DR. Gregory Bowen MD on 06/10/2018 10:34 PM
[2018-06-10] MEDS ORDERED: KETOROLAC TROME10 MG PO (22:52)
--- NOTE | 2018-06-11 00:13 | Diagnostic Imaging Report ---
EXAM: Right Lower Extremity Venous Duplex Ultrasound INDICATION: Swelling COMPARISON: None TECHNIQUE: West scale, color Doppler and spectral waveform analysis of the right lower extremity deep venous system was performed. FINDINGS: Common Femoral: Fully compressible with normal spontaneous waveforms. Proximal Greater Saphenous: Fully compressible. Femoral: Fully compressible with normal spontaneous waveforms. Normal response to augmentation. Proximal Deep Femoral: Normal spontaneous waveforms. Popliteal: Fully compressible with normal spontaneous waveforms. Posterior tibial: Normal spontaneous waveforms. IMPRESSION: No evidence of deep venous thrombosis above the right calf. Signed by: DR. Gregory Bowen MD on 06/11/2018 12:10 AM
[2018-06-11 02:23] VITALS: BP 148/90
== END 2018-06-10 23:42 | disposition home or self-care (01) ==
LOC: FSED 21:13
DX: M25.561 Pain in right knee (principal); R06.09 Other forms of dyspnea; J45.909 Unspecified asthma, uncomplicated
CPT/HCPCS: 71046; 93005; 93971